=== PATIENT | female | born 1965 | race Two or more races ===

== ENCOUNTER 2025-03-18 18:24 | Emergency (ER) | payer MEDICAID, SELFPAY ==
[2025-03-18 19:00] VITALS: BP 128/73; PULSE 64; RESP 19; TEMP 37; O2SAT 98
[2025-03-18 19:11] VITALS: BMI 24.4
--- NOTE | 2025-03-18 19:23 | PD.EDEAR ---
ED Ear RME/HPI General Chief complaint: Ear Stated complaint: left ear pain Time Seen by Provider: 03/18/25 18:38 Arrival date/time: 03/18/25 18:24 This is a case of 61-year-old female with no medical history came in in the emergency room due to left ear pain itching decreased hearing and clogged left ear patient also complaining of mild right ear pain for 3 days persistence of the symptoms thus patient decided to start consult here in the emergency room Limitations: no limitations Related Data Previous Rx's ?Medication ?Instructions ?Recorded amoxicillin 875 mg-potassium 1 tab PO BID 10 days #20 tabs 03/18/25 clavulanate 125 mg tablet [id number] 3.3 1 applic otic (ear) Q4H #10 mL 03/18/25 mg-3 mg-10 mg-0.5 mg/mL ear drops,susp (Cortisporin-TC) Allergies Allergy/AdvReac Type Severity Reaction Status Date / Time No Known Allergies Allergy Verified 03/18/25 18:24 Review of Systems Review of Systems Systems Reviewed: All systems reviewed, normal except as documented Constitutional Constitutional: Reports system reviewed and no additional complaints, except as documented and Denies headache(s) ENT Ears, Nose, Mouth, and Throat: Reports system reviewed and no additional complaints, except as documented, Reports as per HPI, Denies dental pain, Denies disequilibrium, Denies dizziness, Denies ear discharge, Reports otalgia, Denies epistaxis, Denies facial pain, Denies halitosis, Denies headache(s), Denies hearing loss, Denies hoarseness, Denies mouth lesions, Denies mouth pain, Denies nasal congestion, Denies nasal discharge, Denies nasal obstruction, Denies sinus pain, Denies sinus pressure, Denies sore throat and Denies throat swelling Cardiovascular Cardiovascular: Reports system reviewed and no additional complaints, except as documented and Reports as per HPI Respiratory Respiratory: Reports system reviewed and no additional complaints, except as documented and Reports as per HPI Gastrointestinal Gastrointestinal: Reports system reviewed and no additional complaints, except as documented and Reports as per HPI Musculoskeletal Musculoskeletal: Reports system reviewed and no additional complaints, except as documented and Reports as per HPI Neurologic Neurologic: Reports system reviewed and no additional complaints, except as documented, Reports as per HPI, Denies disequilibrium, Denies dizziness and Denies headache(s) Allergic/Immunologic Allergic/Immunologic: Denies throat swelling Past Medical History Social History SMOKING STATUS: Never smoker ED Exam General Limitations: Present no limitations General appearance: Present alert, in no apparent distress and other (Awake alert oriented not in distress nontoxic looking well-hydrated well-nourished); Absent appears intoxicated or anxious Head Head exam: Present atraumatic, normocephalic and normal inspection ENT ENT exam: Present other (Noted left ear canal impacted cerumen no foreign body with mild redness no tenderness unable to visualize tympanic membrane due to impacted cerumen right tympanic membrane bulging retracted red not perforated ear canal red no tenderness no redness no swelling no discharge no mastoid tenderness bilat) Neck Neck exam: Present normal inspection Chest Chest inspection: Present normal inspection Respiratory Respiratory exam: Present normal lung sounds bilaterally; Absent respiratory distress, wheezes, stridor, accessory muscle use or prolonged expiratory phase Cardiovascular Cardiovascular exam: Present regular rate and normal rhythm; Absent bradycardia, tachycardia, irregular rhythm, normal heart sounds, systolic murmur or diastolic murmur Neurological Exam Neurological exam: Present oriented X3, CN II-XII intact, normal gait and reflexes normal; Absent motor sensory deficit Skin Skin exam: Present warm, dry and intact Course Quality Measures none Vital Signs Vital signs: Vital Signs Temperature 98.6 F 03/18/25 19:00 Pulse Rate 64 03/18/25 19:00 Respiratory Rate 19 03/18/25 19:00 Blood Pressure 128/73 03/18/25 19:00 Pulse Oximetry (%) 98 03/18/25 19:00 Oxygen Delivery Method Room Air 03/18/25 19:00 Oxygen saturation 98% in room air Ear MDM Narrative MDM Narrative:: This is a case of 61-year-old female with no medical history came in in the emergency room due to left ear pain itching decreased hearing and clogged left ear patient also complaining of mild right ear pain for 3 days persistence of the symptoms thus patient decided to start consult here in the emergency room physical examination showed Noted left ear canal impacted cerumen no foreign body with mild redness no tenderness unable to visualize tympanic membrane due to impacted cerumen right tympanic membrane bulging retracted red not perforated ear canal red no tenderness no redness no swelling no discharge no mastoid tenderness bilateral irrigation of the left ear was performed which she removed completely the impacted cerumen noted retracted bulging not perforated tympanic membrane at this point patient will also be discharged as otitis media and discharged with Augmentin and Cortisporin patient will follow-up with PCP in 2 days for reevaluation return precaution to ER is also advised Patient was discharged with comfortable condition walking with stable gait. Patient verbalized no further complains explained diagnosis and answered patient question. Patient is comfortable with the proposed management plan including the need to follow up with his/her primary care physician and any specialist if applicable Discussed patient for any urgent condition or worsening sx, He/She needed to go to emergency room immediately or call 911. Patient acknowledge the responsibility to follow up as instructed and to monitor her/his symptoms. For any persistence of the symptoms for more than 3-5 days return precaution advised. Discussed the result of the test and was given printed discharge instruction Patient data External records reviewed:: [facility] previous records Clinical information provided by:: none Social determinants that could affect healthcare access:: none Patient has the following chronic illnesses:: None How is presenting disease/condition affected by chronic disease/condition?: no chronic disease Evaluation data The following diagnostics were reviewed and interpreted by me:: other (specify) (None) Lab and/or radiology exams considered but not ordered:: None Interpretation Summary: None Medications / Prescriptions Medications or Prescriptions considered but not ordered:: Given Medication administrations:: Given Consultations Consultation(s) initiated? (list below): No Diagnosis Ear Differential Diagnosis: otitis externa, otitis media and cerumen impaction Most likely diagnosis given after review of the tests above:: Impacted cerumen otitis media Admission Indicated Admission indicated?: not indicated Explain why admission is indicated or not indicated:: Not indicated Admission Request Was there a request for admission?: No Admission Attestation Admission request attestation: Not indicated Disposition Plan Disposition Plan: Discharge Discharge Attestation Discharge Attestation: The patient and all family members were given an opportunity to ask questions and understood the discharge instructions. Discharge instructions specifically effects, indications for sooner follow up or return to the emergency department, and the expected course of current diagnosis. Patient condition: Stable Discharge Plan Plan Patient Disposition: HOME (Self Care) Patient condition on transfer: Stable Prescriptions/Referrals Prescriptions/Med Rec: New amoxicillin-pot clavulanate 875-125 mg tablet 1 tab PO BID 10 Days Qty: 20 0RF Cortisporin-TC 3.3-3-10-0.5 mg/mL drops,suspension 1 applic otic (ear) Q4H Qty: 10 0RF Rx Instructions: both ears Problem List Clinical Impression: Otitis media, Left ear impacted cerumen Patient/Caregiver Discharge Instructions Education Materials: Impacted Earwax, ED Otitis Media Antibiotic ... Additional Instructions: Follow-up with your primary care physician in 2 days for reevaluation worsening symptoms or any emergent concern call 911 or go to the nearest emergency room finish the course of antibiotic no Q-tips no cotton balls prevent water to enter both ears advised Print Language: Malian Stand Alone Forms: Micki Award Info., Patient Portal Info Letter PA/BACK END WEB DEVELOPER Supervising Physician PA/BACK END WEB DEVELOPER Supervising Physician: DR YATES
== END 2025-03-18 20:38 | disposition home or self-care (01) ==
LOC: SERX 19:43
PROVIDERS: Emergency Provider Emergency Medicine
DX: H66.93 Otitis media, unspecified, bilateral (principal); H61.22 Impacted cerumen, left ear
CPT/HCPCS: 99281